=== PATIENT | male | born 1960 | race Caucasian/White ===

== ENCOUNTER 2020-11-04 12:04 | Inpatient (IN) | payer OTHER ==
[~2020-11-04] VITALS: Ht 182.9 cm; Wt 95.1 kg
--- NOTE | ~2020-11-04 | PROC ---
[facility] [address] [place] [address] PROCEDURE REPORT Name: SABINO MCKEE Room: [address] IN M.R.#: [id number] Admission: 11/04/20 Attend Phys: Gurvinder Cho Discharge: Date of : 60 Report #: [id number] THIS REPORT FOR: cc: Hilario Clark Bradley L. DO [facility],Medical Records Staff ~ For GI report, please see the Provation report in Perceptive 7 content. By: 1059Medical Records Staff NIRANJAN /FADIA
[~2020-11-04 12:04] MED LIST: ADULT LOW DOSE81 MG PO; CLONIDINE HCL0.2 M2 PO; FISH OIL 1,0001 EAC5; LISINOPRIL20 MG PO; LOPRESSOR 12.12.5 MG; TOPROL XL50 MG PO
[2020-11-04] MEDS ORDERED: OMEPRAZOLE40 MG PO (12:15)
[2020-11-04] MEDS ORDERED: LISINOPRIL20 MG PO (12:15)
[2020-11-04] MEDS ORDERED: SIMVASTATIN80 MG PO (12:15)
[2020-11-04] MEDS ORDERED: FLEXERIL PO (12:16)
[2020-11-04 12:34] LABS: ABSOLUTE BASOPHILS 0.1 thou/uL (0.0-0.2); ABSOLUTE EOSINOPHILS 0.3 thou/uL (0.0-0.7); ABSOLUTE LYMPHOCYTES 2.1 thou/uL (0.8-5.3); ABSOLUTE MONOCYTES 0.7 thou/uL (0.0-1.2); ABSOLUTE NEUTROPHILS 6.5 thou/uL (1.6-8.1); BASOPHILS 1.1 %; EOSINOPHILS 3.4 %; HEMATOCRIT 40.7 % (42.0-52.0); HEMOGLOBIN 14.5 gm/dL (14.0-18.0); LYMPHOCYTES 21.5 %; MCH 29.7 pg (26.0-34.0); MCHC 35.7 g/dL (28.0-37.0); MCV 83.2 fL (80.0-100.0); MONOCYTES 7.2 %; MPV 10.8 fl. (7.2-11.1); NUCLEATED RBCS 0 /100WBC; PLATELET COUNT* 205 thou/uL (150-400); POLYS 66.8 %; WBC 9.8 thou/uL (4.0-11.0)
[2020-11-04 12:42] LABS: CALCIUM 8.8 mg/dL (8.5-10.1); CREATININE 0.9 mg/dL (0.6-1.3); POTASSIUM 3.4 mmol/L (3.5-5.1)
[2020-11-04 12:47] LABS: ALBUMIN 2.8 g/dL (3.4-5.0); TOTAL PROTEIN 7.1 g/dL (6.4-8.2)
[2020-11-04 14:41] LABS: URINE BLOOD NEGATIVE (Negative); URINE CLARITY CLEAR; URINE COLOR YELLOW; URINE GLUCOSE-RANDOM TRACE (Negative); URINE KETONES NEGATIVE (Negative); URINE LEUKOCYTES-REFLEX NEGATIVE (Negative); URINE NITRITE-REFLEX NEGATIVE (Negative); URINE PROTEIN 2+ (Negative); URINE SPECIFIC GRAVITY 1.015 (1.005-1.030)
[2020-11-04 14:42] LABS: URINE BILIRUBIN 3+ (Negative)
[2020-11-04 14:44] LABS: ICTOTEST (BILI CONFIRMATORY) Positive (Negative)
[2020-11-04 14:46] LABS: BACTERIA-REFLEX 1-9 Few /HPF (None Seen); CASTS None Seen /LPF (None Seen); CRYSTALS None Seen /LPF (None Seen); SQUAMOUS 0-3 Few /LPF (0-3); URINE RBC 0-2 Rare /HPF (0-2); URINE WBC-REFLEX 0-5 Rare /HPF (0-5)
--- NOTE | 2020-11-04 15:25 | EKG ---
[place] [address] ELECTROCARDIOGRAM REPORT Name: SABINO MCKEE Room: [facility]-9 ADM IN .R.#: [id number] Admission: 11/04/20 Attend Phys: Perez Jacobo Discharge: Date of : 60 Date of Service: 11/04/20 1228 Report #: [id number] THIS REPORT FOR: //name// [facility] ED Test Date: 2020-11-04 Test Time: 12:28:14 Pat Name: SABINO MCKEE Department: Room: [facility] Gender: M Organizational Effectiveness Consultant: JAX : 1960 Requested By: Mg Crocker Order Number: [id number] MD: Avelino Muñoz Measurements Intervals [place] Rate: 60 P: 27 [place]: 215 QRS: 16 QRSD: 99 T: 48 QT: 463 QTc: 463 Interpretive Statements Sinus rhythm Prolonged [place] interval Minimal ST depression, inferior leads Compared to ECG 03/08/2010 08:36:19 First degree AV block now present T-wave abnormality no longer present Possible ischemia no longer present Early repolarization no longer present Minor ST-T changes persist Electronically Signed On 11-04-2020 15:25:21 CDT by Avelino Muñoz [email or web address] <ELECTRONICALLY SIGNED> By: Avelino Muñoz MD, [facility] 11/04/20 1525 1228 1228 Avelino Muñoz MD, [facility] /EPI
[2020-11-04 17:00] VITALS: BP 192/107
[2020-11-04 17:25] VITALS: BP 185/97
[2020-11-04 20:00] VITALS: BP 198/103
[2020-11-05 07:55] LABS: HEMATOCRIT 39.9 % (42.0-52.0); HEMOGLOBIN 14.1 gm/dL (14.0-18.0); MCH 29.5 pg (26.0-34.0); MCHC 35.3 g/dL (28.0-37.0); MCV 83.5 fL (80.0-100.0); MPV 10.3 fl. (7.2-11.1); RBC 4.78 mil/uL (4.50-6.00)
[2020-11-05 07:57] VITALS: BP 169/110
[2020-11-05 08:40] LABS: INR 1.1; PROTIME 11.9 Seconds (9.20-11.50)
[2020-11-05 08:50] LABS: ALBUMIN 2.5 g/dL (3.4-5.0); CALCIUM 8.4 mg/dL (8.5-10.1); CREATININE 0.7 mg/dL (0.6-1.3); POTASSIUM 3.8 mmol/L (3.5-5.1); TOTAL BILIRUBIN 13.7 mg/dL (<0.1-1.0); TOTAL PROTEIN 6.5 g/dL (6.4-8.2)
[2020-11-05 12:00] VITALS: BP 157/87
--- NOTE | 2020-11-05 17:37 | CON ---
[address] [address] CONSULTATION Name: SABINO MCKEE Room: [address] IN M.R.#: [id number] Admission: 11/04/20 Attend Phys: Gurvinder Cho Discharge: Date of : 60 Report #: [id number] THIS REPORT FOR: cc: Hilario Clark Bradley L. DO Vardakis, Gregory DO DOC #: [id number] cc: DO Natasha Wells FNP DATE OF CONSULTATION: 11/05/2020 Please note at the time of this dictation, the patient was seen and physically examined by myself. REASON FOR CONSULTATION: Transaminitis, abdominal pain and jaundice. HISTORY OF PRESENT ILLNESS: This is a 59-year-old male who presented to his PCP's office with concerns for having severe abdominal pain, more in the epigastric and left upper quadrant area since . He was also noted on that he also was looking yellow. He thought his pain would get better, but it did not. He states since his last office visit in the middle of September with his PCP, he has lost 20 pounds. He states his appetite has diminished. About 4 days ago he have had a little bit of nausea. He did take some V[place] Plus and his nausea went away. He has had no vomiting with any of this except for his decrease in his appetite. He has noticed also since Day, his urine has been very, very dark and his stools have been white in color. The patient does admit that he in the past was a very heavy drinker in his younger years where he would drink 12 pack if not more on a daily basis. He said he always had a beer in his hand in his younger years. Now, he only on Monday and Monday nights will drink a 6 to a 12-pack. He has never seen a indigo vat tender cloth and had an EGD or a colonoscopy. It was noted on his labs from his PCP's office from September that his total bili was 0.3, alk phos was 89, ALT was 36 and AST was 18 and he was doing well at that particular time. ALLERGIES: No known drug allergies. MEDICATIONS: From home include metoprolol and clonidine. PAST MEDICAL HISTORY: High blood pressure, headache, muscle spasm. PAST SURGICAL HISTORY: Negative. FAMILY HISTORY: [place] [address] CONSULTATION Name: RYLEESABINO MIGUEL Gurvinder Room: [address]#: [id number] Admission: 11/04/20 Attend Phys: Gurvinder Cho Discharge: Date of : 60 Report #: [id number] SOCIAL HISTORY: He smokes one and a half packs per day for many years. Alcohol use, positive for 6 to 12 pack 2 days a week, prior history of very heavy alcohol use, only beer. REVIEW OF SYSTEMS: Twelve point review of systems is essentially negative except what is mentioned in the HPI. PHYSICAL EXAMINATION: VITAL SIGNS: Temperature 97.7, pulse 60, respirations 18, blood pressure 169/110. HEENT: The patient's sclerae are icterus. SKIN: His skin is yellow in nature. HEART: Regular rate and rhythm. LUNGS: Clear. ABDOMEN: Soft, positive bowel sounds in all four quadrants with tenderness noted in the epigastric to left upper quadrant area. LABORATORY DATA: Hemoglobin is 14.5, white count is 9.8, platelets 205. GFR is 86. His lipase is 645, total bili is 15, alk phos is 314, ALT is 205, AST is 84. DIAGNOSTIC DATA: CT scan showed that his lungs are clear. No gallstones and gallbladder is moderately distended, states his pancreas is normal. IMPRESSION: 1. Abdominal pain. 2. Nausea, intermittent. 3. Jaundice. 4. Weight loss of 20 pounds in the past month. 5. Transaminitis. 6. Loss of appetite. 7. Alcohol abuse, history of heavy in the past. Currently, he drinks a 6-12 pack on Monday and Saturdays only. PLAN: 1. Ultrasound of the abdomen. 2. MRCP. 3. Labs; PT/INR, CA 19-9, acute hepatitis panel, CEA for today. Tomorrow; CMP and CBC. 4. Levaquin 500 mg IV piggyback daily. 5. Likely will need ERCP later today with Dr. Browne and to keep n.p.o. 6. Further recommendations to be made after all the above has been noted. Thank you for allowing us to participate in this patient's care. Please do not [address] [place] [address] CONSULTATION Name: SABINO MCKEE Room: M.211-P ADM IN M.R.#: [id number] Admission: 11/04/20 Attend Phys: Gurvinder Cho Discharge: Date of : 60 Report #: [id number] hesitate to call with any questions regarding this consult. Matheus Browne DO JLB/SUB <ELECTRONICALLY SIGNED> By: Matheus Browne DO 11/05/20 1737 [id number] [id number] Browne DO /nt
[2020-11-05 20:00] VITALS: BP 135/63
[2020-11-06] VITALS: BP 130/77
[2020-11-06 02:06] LABS: HEPATITIS B SURFACE AG Negative (Negative)
[2020-11-06 04:00] VITALS: BP 139/77
[2020-11-06 05:08] LABS: HEMATOCRIT 40.5 % (42.0-52.0); HEMOGLOBIN 13.9 gm/dL (14.0-18.0); MCH 28.8 pg (26.0-34.0); MCHC 34.5 g/dL (28.0-37.0); MCV 83.5 fL (80.0-100.0); RBC 4.84 mil/uL (4.50-6.00); RDW-CV 16.9 % (10.5-14.5); WBC 11.3 thou/uL (4.0-11.0)
[2020-11-06 05:28] LABS: ALBUMIN 2.4 g/dL (3.4-5.0); CALCIUM 8.7 mg/dL (8.5-10.1); POTASSIUM 3.9 mmol/L (3.5-5.1); TOTAL BILIRUBIN 14.7 mg/dL (<0.1-1.0); TOTAL PROTEIN 6.2 g/dL (6.4-8.2)
[2020-11-06 08:00] VITALS: BP 146/81
[2020-11-06] MEDS ORDERED: PROTONIX40 M2 PO (10:56)
[2020-11-06] MEDS ORDERED: LEVOFLOXACIN500 MG PO (10:56)
[2020-11-06 11:09] VITALS: BP 146/81
[2020-11-06 14:45] VITALS: BP 146/81
[2020-11-06 15:08] LABS: CA 19-9 5630 U/mL (0-35)
== END 2020-11-06 14:30 | disposition home or self-care (01) | DRG 442 ==
LOC: M.ERS 12:04 → M.TBA-ER 13:17 → M.2W 17:26
PROVIDERS: Family Medicine; Internal Medicine Gastroenterology; Nurse Practitioner Adult Health; ADMIT Internal Medicine; ATTEND Internal Medicine
PROC: 0DJ08ZZ Inspection of Upper Intestinal Tract, Via Natural or Artificial Opening Endoscopic (ICD-10-PCS; principal; 2020-11-05)
PROC: 0F798DZ Dilation of Common Bile Duct with Intraluminal Device, Via Natural or Artificial Opening Endoscopic (ICD-10-PCS; principal; 2020-11-05)
DX: K72.90 Hepatic failure, unspecified without coma (principal); M48.56XA Collapsed vertebra, not elsewhere classified, lumbar region, initial encounter for fracture; K31.5 Obstruction of duodenum; R63.4 Abnormal weight loss; R74.01 Elevation of levels of liver transaminase levels; F10.20 Alcohol dependence, uncomplicated; E87.6 Hypokalemia; K21.00 Gastro-esophageal reflux disease with esophagitis, without bleeding; K31.9 Disease of stomach and duodenum, unspecified; K26.9 Duodenal ulcer, unspecified as acute or chronic, without hemorrhage or perforation; Z68.28 Body mass index [BMI] 28.0-28.9, adult; Z20.822 Contact with and (suspected) exposure to COVID-19

== ENCOUNTER 2020-11-12 12:26 | Inpatient (IN) | payer OTHER ==
[~2020-11-12] VITALS: Ht 182.9 cm; Wt 91.6 kg
[~2020-11-12 12:26] MED LIST changes: +FLEXERIL PO; +LEVOFLOXACIN500 MG PO; +OMEPRAZOLE40 MG PO; +PROTONIX40 M2 PO; +SIMVASTATIN80 MG PO
[2020-11-12 12:51] VITALS: BP 110/70
[2020-11-12 13:33] LABS: ABSOLUTE BASOPHILS 0.2 thou/uL (0.0-0.2); ABSOLUTE EOSINOPHILS 0.6 thou/uL (0.0-0.7); ABSOLUTE LYMPHOCYTES 2.2 thou/uL (0.8-5.3); ABSOLUTE MONOCYTES 1.1 thou/uL (0.0-1.2); ABSOLUTE NEUTROPHILS 8.2 thou/uL (1.6-8.1); BASOPHILS 1.2 %; EOSINOPHILS 4.6 %; HEMATOCRIT 41.1 % (42.0-52.0); HEMOGLOBIN 14.4 gm/dL (14.0-18.0); LYMPHOCYTES 17.8 %; MCH 29.2 pg (26.0-34.0); MCV 83.5 fL (80.0-100.0); MONOCYTES 9.1 %; MPV 9.6 fl. (7.2-11.1); NUCLEATED RBCS 0 /100WBC; PLATELET COUNT* 270 thou/uL (150-400); POLYS 67.3 %; RBC 4.93 mil/uL (4.50-6.00); RDW-CV 17.9 % (10.5-14.5); WBC 12.3 thou/uL (4.0-11.0)
[2020-11-12 13:42] LABS: CALCIUM 9.1 mg/dL (8.5-10.1); CREATININE 1.3 mg/dL (0.6-1.3); POTASSIUM 3.8 mmol/L (3.5-5.1)
[2020-11-12 13:47] LABS: ALBUMIN 2.8 g/dL (3.4-5.0); TOTAL BILIRUBIN 7.4 mg/dL (<0.1-1.0); TOTAL PROTEIN 7.4 g/dL (6.4-8.2)
[2020-11-12 13:57] LABS: URINE BLOOD NEGATIVE (Negative); URINE CLARITY CLEAR; URINE COLOR OTHER; URINE GLUCOSE-RANDOM TRACE (Negative); URINE KETONES TRACE (Negative); URINE LEUKOCYTES-REFLEX NEGATIVE (Negative); URINE NITRITE-REFLEX NEGATIVE (Negative); URINE PROTEIN 1+ (Negative); URINE SPECIFIC GRAVITY 1.025 (1.005-1.030)
[2020-11-12 14:02] LABS: ICTOTEST (BILI CONFIRMATORY) Positive (Negative); URINE BILIRUBIN 3+ (Negative)
[2020-11-12 14:03] LABS: CASTS None Seen /LPF (None Seen); CRYSTALS None Seen /LPF (None Seen); SQUAMOUS 0-3 Few /LPF (0-3); URINE RBC 0-2 Rare /HPF (0-2); URINE WBC-REFLEX 0-5 Rare /HPF (0-5)
[2020-11-12 22:00] VITALS: BP 138/72
[2020-11-13] VITALS (8 sets, daily range): BP systolic 131–198; BP diastolic 65–106
[2020-11-14 03:16] LABS: ABSOLUTE BASOPHILS 0.1 thou/uL (0.0-0.2); ABSOLUTE EOSINOPHILS 0.3 thou/uL (0.0-0.7); ABSOLUTE LYMPHOCYTES 1.6 thou/uL (0.8-5.3); ABSOLUTE MONOCYTES 1.1 thou/uL (0.0-1.2); ABSOLUTE NEUTROPHILS 7.3 thou/uL (1.6-8.1); EOSINOPHILS 3.2 %; HEMATOCRIT 37.3 % (42.0-52.0); HEMOGLOBIN 13.1 gm/dL (14.0-18.0); LYMPHOCYTES 15.8 %; MCH 29.1 pg (26.0-34.0); MONOCYTES 10.3 %; NUCLEATED RBCS 0 /100WBC; PLATELET COUNT* 213 thou/uL (150-400); POLYS 69.7 %; WBC 10.4 thou/uL (4.0-11.0)
[2020-11-14 03:27] LABS: ALBUMIN 2.5 g/dL (3.4-5.0); CALCIUM 8.4 mg/dL (8.5-10.1); CREATININE 0.9 mg/dL (0.6-1.3); POTASSIUM 3.5 mmol/L (3.5-5.1); TOTAL BILIRUBIN 6.9 mg/dL (<0.1-1.0); TOTAL PROTEIN 6.5 g/dL (6.4-8.2)
[2020-11-14 03:59] VITALS: BP 149/82
[2020-11-14 08:16] VITALS: BP 153/89
[2020-11-14 15:54] VITALS: BP 130/67
[2020-11-14 20:00] VITALS: BP 146/73
[2020-11-15 06:16] VITALS: BP 155/78
[2020-11-15 07:42] VITALS: BP 150/76
[2020-11-15 09:27] LABS: ALBUMIN 2.3 g/dL (3.4-5.0); CALCIUM 8.6 mg/dL (8.5-10.1); CREATININE 0.9 mg/dL (0.6-1.3); POTASSIUM 3.5 mmol/L (3.5-5.1); TOTAL BILIRUBIN 6.7 mg/dL (<0.1-1.0); TOTAL PROTEIN 6.1 g/dL (6.4-8.2)
[2020-11-15 11:08] LABS: ABSOLUTE BASOPHILS 0.1 thou/uL (0.0-0.2); ABSOLUTE EOSINOPHILS 0.5 thou/uL (0.0-0.7); ABSOLUTE LYMPHOCYTES 1.2 thou/uL (0.8-5.3); ABSOLUTE MONOCYTES 0.8 thou/uL (0.0-1.2); ABSOLUTE NEUTROPHILS 6.1 thou/uL (1.6-8.1); BASOPHILS 1.1 %; EOSINOPHILS 5.2 %; HEMATOCRIT 35.5 % (42.0-52.0); HEMOGLOBIN 12.4 gm/dL (14.0-18.0); MCH 29.1 pg (26.0-34.0); MCHC 34.8 g/dL (28.0-37.0); MCV 83.5 fL (80.0-100.0); MONOCYTES 9.3 %; MPV 9.5 fl. (7.2-11.1); NUCLEATED RBCS 0 /100WBC; PLATELET COUNT* 202 thou/uL (150-400); POLYS 70.4 %; RBC 4.26 mil/uL (4.50-6.00); RDW-CV 17.4 % (10.5-14.5); WBC 8.7 thou/uL (4.0-11.0)
[2020-11-15 15:56] VITALS: BP 137/75
[2020-11-15 20:30] VITALS: BP 140/71
[2020-11-16 05:19] LABS: ALBUMIN 2.3 g/dL (3.4-5.0); DIRECT BILIRUBIN 4.3 mg/dL (<0.1-0.3); TOTAL BILIRUBIN 5.3 mg/dL (<0.1-1.0)
[2020-11-16 07:49] VITALS: BP 156/78
[2020-11-16] MEDS ORDERED: AUGMENTIN 875-1 EACH PO (09:18)
[2020-11-16] MEDS ORDERED: OXYCODONE HCL 55 MG PO (09:18)
[2020-11-16 16:43] VITALS: BP 110/65
[2020-11-16 21:00] VITALS: BP 161/68
[2020-11-17 07:50] VITALS: BP 136/72
[2020-11-17 11:25] VITALS: BP 136/72
[2020-11-17 12:29] VITALS: BP 136/72
[2020-11-17 12:30] VITALS: BP 136/72
== END 2020-11-17 12:20 | disposition home or self-care (01) | DRG 438 ==
LOC: M.ERS 12:26 → M.TBA-ER 17:53 → M.ORTHSURG 11-13 18:04
PROVIDERS: Internal Medicine; Internal Medicine Gastroenterology; Physician Assistant; ADMIT Internal Medicine; ATTEND Internal Medicine
DX: K85.90 Acute pancreatitis without necrosis or infection, unspecified (principal); K83.1 Obstruction of bile duct; I10 Essential (primary) hypertension; K86.9 Disease of pancreas, unspecified; F17.210 Nicotine dependence, cigarettes, uncomplicated; E80.6 Other disorders of bilirubin metabolism; R74.01 Elevation of levels of liver transaminase levels; Z20.822 Contact with and (suspected) exposure to COVID-19; Z79.899 Other long term (current) drug therapy; Z72.89 Other problems related to lifestyle